=== PATIENT | male | born 1935 | race Caucasian/White ===

== ENCOUNTER 2020-10-24 17:51 | Emergency (ER) | payer MEDICARE ==
[~2020-10-24] VITALS: Ht 180.3 cm; Wt 79.8 kg
[~2020-10-24 17:51] MED LIST: ASPI325EC; FOLI1; METO25ER
[2020-10-24 18:23] LABS: BASOPHILS ABSOLUTE AUTO 0.05 K/mm3 (0.00-0.23); BASOPHILS PERCENT AUTO 0 % (0-2); EOSINOPHILS ABSOLUTE AUTO 0.12 K/mm3 (0.00-0.68); EOSINOPHILS PERCENT AUTO 1 % (0-6); Hematocrit 48.6 % (37.0-53.0); Hemoglobin 16.3 g/dL (13.5-17.5); IMMATURE GRAN ABSOLUTE AUTO 0.04 K/mm3 (0.00-0.10); IMMATURE GRAN PERCENT AUTO 0 % (0-1); LYMPHOCYTES ABSOLUTE AUTO 1.84 K/mm3 (0.84-5.20); LYMPHOCYTES PERCENT AUTO 15 % (21-46); MONOCYTES ABSOLUTE AUTO 0.68 K/mm3 (0.16-1.47); MONOCYTES PERCENT AUTO 6 % (4-13); Mean Corpuscular HGB 32.8 pg (26.0-34.0); Mean Corpuscular HGB Conc 33.5 g/dL (31.5-36.5); Mean Corpuscular Volume 98 fL (80-100); Mean Platelet Volume 9.5 fL (9.1-12.4); NEUTROPHILS ABSOLUTE AUTO 9.43 K/mm3 (1.96-9.15); NEUTROPHILS PERCENT AUTO 78 % (41-73); Platelet Count 249 K/mm3 (150-400); RDW Coefficient Variation 12.8 % (11.7-14.2); Red Blood Cell Count 4.97 M/mm3 (4.30-5.90); White Blood Cell Count 12.16 K/mm3 (4.00-11.30)
[2020-10-24 18:48] LABS: Alanine Aminotransfer (ALT/SGP 29 U/L (12-78); Albumin, Blood 4.1 g/dL (3.4-5.0); Alk Phos 98 U/L (50-136); Anion Gap 6 mmol/L (6-16); Aspartate Aminotrans (AST/SGOT 21 U/L (12-37); Blood Urea Nitrogen 18 mg/dL (8-24); CO2, Blood 26 mmol/L (21-32); Calcium, Blood 9.5 mg/dL (8.5-10.1); Chloride, Blood 108 mmol/L (98-108); Globulin, Blood 4.2 g/dL (2.2-4.0); Glomerular Filtration Rate >60 (60-); Glucose, Blood 102 mg/dL (70-99); Potassium, Blood 4.4 mmol/L (3.5-5.5); Sodium, Blood 140 mmol/L (136-145); Total Protein, Blood 8.3 g/dL (6.4-8.2); Troponin I <0.015 ng/mL (0.000-0.040)
[2020-10-24] MEDS ORDERED: metoprolol succinate PO (21:18)
[2020-10-24] MEDS ORDERED: LISI20 PO (21:19)
[2020-10-25 00:20] LABS: Influenza A, PCR NEGATIVE (NEGATIVE); Influenza B, PCR NEGATIVE (NEGATIVE); Resp Syncytial Virus, PCR NEGATIVE (NEGATIVE); SARS-Cov-2 (COVID-19) PCR, MMC NEGATIVE (NEGATIVE)
--- NOTE | 2020-10-25 00:37 | NUR ---
INTO [facility]IA [facility] FROM ER ROOM. History, Chart, Medications and Allergies reviewed before start of procedure.PT REPORTS NPO STATUS AFTER EATING LUNCH AND GETTING "BEEF STROGANOUGH STUCK". AT 1200 ON 10/24/20. Lungs clear T/O to Auscultation. Patient States Post-Procedure ride home has been arranged WITH S/O
--- NOTE | 2020-10-25 00:55 | NUR ---
10/25/20 0055 Reanna Perez History, Chart, Medications and Allergies reviewed before start of procedure.3-LEAD EKG REVIEWED WITH PHYSICIAN PRIOR TO START OF PROCEDURE.MONITOR INTACT WITH CONTINUOUS PULSE OXIMETRY AND INTERMITTENT BP.O2 VIA N/C INTACT THROUGHOUT SEDATION/PROCEDURE. PATIENT DETERMINED TO BE ASA APPROPRIATE FOR MODERATE SEDATION PRIOR TO START OF PROCEDURE BY DR. BUSH.Bite Block Placed
--- NOTE | 2020-10-25 02:11 | NUR ---
Patient up to Ambulate independently. Gait steady. Discharge instructions reviewed with patient AND S/O PER PT REQUEST. Patient verbalizes understanding. Copy given to patient to take home INCLUDING PRESCRIPTION. Discharged via wheelchair to private car for ride home WITH S/O
[2020-11-29] MEDS ORDERED: SILD25T (13:28)
[2020-11-29] MEDS ORDERED: Flonase 0.05% N16 GM (13:28)
[2020-11-29] MEDS ORDERED: Aspirin EC81 MG PO (13:28)
[2020-11-29] MEDS ORDERED: METO50ER PO (13:29)
[2020-11-29] MEDS ORDERED: LISI20 PO (13:29)
== END 2020-10-25 00:26 | disposition other institution (70) ==
LOC: ER 17:51
PROVIDERS: Emergency Medicine; Physician Assistant
DX: T18.128A Food in esophagus causing other injury, initial encounter (principal); K22.2 Esophageal obstruction; K25.9 Gastric ulcer, unspecified as acute or chronic, without hemorrhage or perforation; K26.9 Duodenal ulcer, unspecified as acute or chronic, without hemorrhage or perforation; I10 Essential (primary) hypertension; I25.10 Atherosclerotic heart disease of native coronary artery without angina pectoris; Z20.822 Contact with and (suspected) exposure to COVID-19; Z79.899 Other long term (current) drug therapy
CPT/HCPCS: 0241U; 36415; 71046; 80053; 84484; 85025; 88305; 88342; 93005; 93010; 96374; 96375; 99285-25; A9270; J1610; J2060; J2250; J2405; J3010; J7120

== ENCOUNTER 2020-12-05 12:29 | Day surgery (SDC) | payer MEDICARE ==
[~2020-12-05] VITALS: Ht 180.3 cm; Wt 81.4 kg
[~2020-12-05 12:29] MED LIST changes: +Aspirin EC81 MG PO; +Flonase 0.05% N16 GM; +LISI20 PO; +METO50ER PO; +SILD25T; +metoprolol succinate PO
== END 2020-12-05 15:06 | disposition home or self-care (01) ==
LOC: ORSCSDS 12:29
PROVIDERS: Internal Medicine Gastroenterology
PROC: 0DB58ZX Excision of Esophagus, Via Natural or Artificial Opening Endoscopic, Diagnostic (ICD-10-PCS; principal; 2020-12-05 13:45)
PROC: 0DB78ZX Excision of Stomach, Pylorus, Via Natural or Artificial Opening Endoscopic, Diagnostic (ICD-10-PCS; principal; 2020-12-05 13:45)
PROC: 0D758ZZ Dilation of Esophagus, Via Natural or Artificial Opening Endoscopic (ICD-10-PCS; principal; 2020-12-05 13:45)
DX: R13.14 Dysphagia, pharyngoesophageal phase (principal); K22.2 Esophageal obstruction; K31.7 Polyp of stomach and duodenum; K44.9 Diaphragmatic hernia without obstruction or gangrene; I10 Essential (primary) hypertension; Z79.899 Other long term (current) drug therapy; Z79.82 Long term (current) use of aspirin; I25.10 Atherosclerotic heart disease of native coronary artery without angina pectoris
CPT/HCPCS: 88305; 88341; 88342; C1726; J2704; J7120

== ENCOUNTER 2024-09-04 17:45 | Emergency (ER) | payer MEDICARE ==
[~2024-09-04] VITALS: Ht 180.3 cm; Wt 79.8 kg
[~2024-09-04 17:45] MED LIST changes: -ATOR40TA PO; -FUROSEMIDE20 MG PO; -GABA300 PO; -ONDA4ODT MM; -WARF1
[2024-09-04] MEDS ORDERED: Phytonadione 5 MG Tab PO ONE (19:10)
[2024-09-04] MEDS ORDERED: Ondansetron HCl 2 MG / ML 2ML Vial IV ONE (19:10)
[2024-09-04 19:12] VITALS: BP 114/84
[2024-09-04] MEDS ORDERED: ATOR40TA PO (19:14)
[2024-09-04] MEDS ORDERED: FUROSEMIDE20 MG PO (19:14)
[2024-09-04] MEDS ORDERED: NS 1,000 ML IV SCH (19:15)
[2024-09-04] MEDS ORDERED: WARF1 (19:15)
[2024-09-04 22:26] LABS: Source, Urine Voided
[2024-09-04 22:28] LABS: Bilirubin, Urine Neg (Neg); Blood, Urine 4+ (Neg); Glucose Qualitative, Urine Neg (Neg); Ketones, Urine 3+ (Neg); Leukocyte Esterase, Urine 1+ (Neg); Nitrite, Urine Neg (Neg); Protein, Urine 2+ (Neg); Specific Gravity, Urine 1.025 (1.003-1.022); Urobilinogen, Urine NORM (Normal)
[2024-09-04 22:37] LABS: Appearance, Urine Hazy (Clear); Color, Urine Yellow (P-Yellow)
[2024-09-04 22:38] LABS: Bacteria Many /hpf; Granular Casts 0-2 /lpf (0); Hyaline Casts 0-2 /lpf (0-2); Red Blood Cells, Urine 0-2 /hpf (0-2); Squamous Epithelial Cells Mod /hpf (Few); White Blood Cells, Urine 0-2 /hpf (0-5)
[2024-09-04 22:39] LABS: Calcium Oxalate Crystals Few /hpf
[2024-09-06] MEDS ORDERED: ONDA4ODT MM (11:26)
[2024-09-06] MEDS ORDERED: GABA300 PO (18:21)
== END 2024-09-04 22:19 | disposition home or self-care (01) ==
LOC: ER 17:45
PROVIDERS: Emergency Medicine
DX: R11.0 Nausea (principal); R19.7 Diarrhea, unspecified; T45.515A Adverse effect of anticoagulants, initial encounter; I48.91 Unspecified atrial fibrillation; Z79.899 Other long term (current) drug therapy; Z79.01 Long term (current) use of anticoagulants; I10 Essential (primary) hypertension; K52.9 Noninfective gastroenteritis and colitis, unspecified
CPT/HCPCS: 36415; 80053; 81001; 82270; 85025; 85610; 87086; 87177; 87209; 93005; 93010; 96374; 99284-25; A9270; J2405; J7030

== ENCOUNTER → 2024-09-04 | Outpatient (CLI) | payer MEDICARE ==
[~2024-09-04] MED LIST changes: +ATOR40TA PO; +FUROSEMIDE20 MG PO; +GABA300 PO; +ONDA4ODT MM; +WARF1
[2024-09-08 12:40] LABS: Stool Occult Blood Guaiac 1 Neg (Neg)
[2024-09-13 12:27] LABS: OVA AND PARASITE,FECAL INTERP Negative (Negative)
== END | disposition home or self-care (01) ==
LOC: LAB 11:58 → LAB SHORT 11:58
PROVIDERS: Nurse Practitioner Family
DX: K52.9 Noninfective gastroenteritis and colitis, unspecified (principal); Z79.01 Long term (current) use of anticoagulants
CPT/HCPCS: 82270; 87177; 87209

== ENCOUNTER 2024-09-10 09:26 | Emergency (ER) | payer MEDICARE ==
[~2024-09-10] VITALS: Ht 170.2 cm; Wt 74.4 kg
[~2024-09-10 09:26] MED LIST changes: +ATOR40TA PO; +FUROSEMIDE20 MG PO; +GABA300 PO; +ONDA4ODT MM; +WARF1
[2024-09-10 09:53] VITALS: BP 127/64
== END 2024-09-10 10:54 | disposition home or self-care (01) ==
LOC: ER 09:26
DX: M48.54XD Collapsed vertebra, not elsewhere classified, thoracic region, subsequent encounter for fracture with routine healing (principal)
CPT/HCPCS: 99281

== ENCOUNTER 2024-12-16 12:03 | Inpatient (IN) | payer MEDICARE ==
[~2024-12-16] VITALS: Ht 180.3 cm; Wt 70.4 kg
[~2024-12-16 12:03] MED LIST changes: -WARF1; +WARF2 PO
[2024-12-16] MEDS ORDERED: Lactated Ringer's 1,000 ML IV SCH (12:20)
[2024-12-16] MEDS ORDERED: Lactated Ringer's 1,000 ML IV ONE (12:30)
[2024-12-16 12:46] LABS: BASOPHILS ABSOLUTE AUTO 0.03 K/mm3 (0.00-0.23); BASOPHILS PERCENT AUTO 0 % (0-2); EOSINOPHILS ABSOLUTE AUTO 0.01 K/mm3 (0.00-0.68); EOSINOPHILS PERCENT AUTO 0 % (0-6); Hematocrit 39.5 % (37.0-53.0); Hemoglobin 13.3 g/dL (13.5-17.5); IMMATURE GRAN ABSOLUTE AUTO 0.04 K/mm3 (0.00-0.10); IMMATURE GRAN PERCENT AUTO 0 % (0-1); LYMPHOCYTES ABSOLUTE AUTO 0.98 K/mm3 (0.84-5.20); LYMPHOCYTES PERCENT AUTO 9 % (21-46); MONOCYTES ABSOLUTE AUTO 1.25 K/mm3 (0.16-1.47); MONOCYTES PERCENT AUTO 11 % (4-13); Mean Corpuscular HGB 34.5 pg (26.0-34.0); Mean Corpuscular HGB Conc 33.7 g/dL (31.5-36.5); Mean Corpuscular Volume 102 fL (80-100); Mean Platelet Volume 9.6 fL (9.1-12.4); NEUTROPHILS ABSOLUTE AUTO 9.01 K/mm3 (1.96-9.15); NEUTROPHILS PERCENT AUTO 80 % (41-73); Platelet Count 259 K/mm3 (150-400); RDW Coefficient Variation 13.1 % (11.7-14.2); RDW Standard Deviation 49.5 fL (35.1-46.3); Red Blood Cell Count 3.86 M/mm3 (4.30-5.90); White Blood Cell Count 11.32 K/mm3 (4.00-11.30)
[2024-12-16 12:54] LABS: Source, Urine Clean Catch
[2024-12-16 13:04] LABS: Appearance, Urine Clear (Clear); Bilirubin, Urine Neg (Neg); Blood, Urine 4+ (Neg); Color, Urine Yellow (P-Yellow); Glucose Qualitative, Urine Neg (Neg); Ketones, Urine Neg (Neg); Leukocyte Esterase, Urine Neg (Neg); Nitrite, Urine Neg (Neg); Protein, Urine 2+ (Neg); Specific Gravity, Urine 1.025 (1.003-1.022); Urobilinogen, Urine NORM (Normal)
[2024-12-16 13:13] LABS: Albumin, Blood 3.1 g/dL (3.4-5.0); Albumin/Globulin Ratio 0.7 (0.8-1.8); Bilirubin, Total 0.7 mg/dL (0.1-1.0); Bun/Creatinine Ratio 18.9 (12.0-20.0); Calcium, Blood 8.9 mg/dL (8.5-10.1); Creatinine, Blood 0.9 mg/dL (0.60-1.20); Globulin, Blood 4.6 g/dL (2.2-4.0); Potassium, Blood 4.7 mmol/L (3.5-5.5); Total Protein, Blood 7.7 g/dL (6.4-8.2)
[2024-12-16 13:20] LABS: Bacteria Rare /hpf; Renal Epithelial Rare /hpf (0-Rare); Squamous Epithelial Cells Rare /hpf (Few); White Blood Cells, Urine 0-2 /hpf (0-5)
[2024-12-16] MEDS ORDERED: CefTRIAXone Sodium 1,000 MG in NS 100 ML IV ONE ×2 (13:45→14:55)
[2024-12-16] MEDS ORDERED: Ondansetron HCl 2 MG / ML 2ML Vial IV PRN (16:00)
[2024-12-16] MEDS ORDERED: OxyCODONE HCL 5 MG TAB PO PRN ×3 (16:00→23:40)
[2024-12-16] MEDS ORDERED: WARF2 PO (16:24)
[2024-12-16 16:32] LABS: International Normalized Ratio 1.74; Prothrombin Time Results 17.9 Sec (9.7-11.5)
[2024-12-16 17:55] VITALS: BP 136/70
[2024-12-16] MEDS ORDERED: Warfarin Sodium 5 MG Tab PO ONE (18:00)
--- NOTE | 2024-12-16 18:25 | NUR ---
ADMISSION AND SHIFT SUMMARY PATIENT ALERT AND INTERACTIVE BUT VERY HARD OF HEARING. PATIENT TRANFERRED FROM GURNEY TO BED. LOWER EXTREMETIES SATURATED FROM WEEPING OF LEGS. PATIENT REPORTING BACK AND HIP PAIN. PATIENT STATES HIP PAIN IS NEW SINCE YESTERDAY. ADMISSION PROCESS STARTED. PATIENT EATING DINNER DURING ADMISSION PROCESS.
[2024-12-16 19:34] VITALS: BP 116/62
[2024-12-16] MEDS ORDERED: Lactobacil 2-S.Thermo-Bifido 1 1 Cap PO SCH (21:00)
[2024-12-16] MEDS ORDERED: Sennosides 8.6 MG Tab PO SCH (21:00)
[2024-12-16] MEDS ORDERED: Metoprolol Succinate 25 MG TABCR PO SCH (21:00)
[2024-12-16] MEDS ORDERED: Docusate Sodium 100 MG Cap PO SCH (21:00)
[2024-12-16] MEDS ORDERED: Acetaminophen 325 MG TABLET PO PRN (22:35)
[2024-12-16] MEDS ORDERED: FentaNYL Citrate 50 MCG/ML 2 ML Injection IV ONE (23:35)
[2024-12-16 23:38] VITALS: BP 114/81
[2024-12-17] MEDS ORDERED: FentaNYL Citrate 50 MCG/ML 2 ML Injection IV PRN (02:05)
[2024-12-17] MEDS ORDERED: Naloxone HCl 0.4MG / ML 1ML Vial IV PRN (02:10)
[2024-12-17] MEDS ORDERED: Ketorolac Tromethamine 30mg Vial IV ONE (03:00)
[2024-12-17 03:56] VITALS: BP 109/67
[2024-12-17] MEDS ORDERED: NS 250 ML IV PRN (04:15)
--- NOTE | 2024-12-17 04:51 | NUR ---
SHIFT SUMMARY PT A&Ox4. PT PAINFUL MOST OF THE NIGHT. PT FIRST C/O PAIN IN HIS BACK BUT ALSO LATER C/O PAIN IN LEFT HEAL, LEFT KNEE, AND ABD. SPOKE WITH DR's TWICE ON THE PHONE AND ONCE IN PERSON. ORDERS GIVEN EACH TIME TO HELP MANAGE PT's PAIN. PT EVENTUALLY FELL ASLEEP AROUND 0330 AND APPEARED TO BE RESTING COMFORTABLY. RESPIRATIONS EVEN AND UNLABORED. NO EVENTS ON TELE. PT NEEDING TO URINATE SMALL, FEQUENT AMOUNTS. MALE PURWICK PLACED. PIC TAKEN OF RED AREA ON COCCYX AND PT FLOATED ON PILLOWS. DR AWARE OF STAGE 1 PRESSURE INJURY. PT ALSO C/O FEELING LIKE LEFT HEAL WAS STICKING TO BED AND CAUSING PAIN. NON ADHERANT PADS AND CURLEX DRESSING PLACED ON FOOT FOR COMFORT. DOPPLER USED TO FIND PEDAL PULSES. REDNESS ON BILATEAL LEGS OUTLINED. VSS. BED ALARM ON. BED IN LOWEST POSITION AND CALL LIGHT IN REACH.
[2024-12-17 05:25] LABS: BASOPHILS ABSOLUTE AUTO 0.03 K/mm3 (0.00-0.23); BASOPHILS PERCENT AUTO 0 % (0-2); EOSINOPHILS ABSOLUTE AUTO 0.02 K/mm3 (0.00-0.68); EOSINOPHILS PERCENT AUTO 0 % (0-6); Hematocrit 33.3 % (37.0-53.0); Hemoglobin 11.1 g/dL (13.5-17.5); IMMATURE GRAN ABSOLUTE AUTO 0.05 K/mm3 (0.00-0.10); IMMATURE GRAN PERCENT AUTO 1 % (0-1); LYMPHOCYTES ABSOLUTE AUTO 0.89 K/mm3 (0.84-5.20); LYMPHOCYTES PERCENT AUTO 9 % (21-46); MONOCYTES ABSOLUTE AUTO 1.22 K/mm3 (0.16-1.47); MONOCYTES PERCENT AUTO 12 % (4-13); Mean Corpuscular HGB 33.6 pg (26.0-34.0); Mean Corpuscular HGB Conc 33.3 g/dL (31.5-36.5); Mean Corpuscular Volume 101 fL (80-100); Mean Platelet Volume 9.7 fL (9.1-12.4); NEUTROPHILS ABSOLUTE AUTO 7.68 K/mm3 (1.96-9.15); NEUTROPHILS PERCENT AUTO 78 % (41-73); Platelet Count 217 K/mm3 (150-400); RDW Standard Deviation 48.4 fL (35.1-46.3); White Blood Cell Count 9.89 K/mm3 (4.00-11.30)
[2024-12-17 05:39] LABS: International Normalized Ratio 2.18
[2024-12-17 05:49] LABS: Albumin, Blood 2.4 g/dL (3.4-5.0); Albumin/Globulin Ratio 0.7 (0.8-1.8); Bilirubin, Total 0.8 mg/dL (0.1-1.0); Bun/Creatinine Ratio 21.7 (12.0-20.0); Calcium, Blood 7.9 mg/dL (8.5-10.1); Creatinine, Blood 0.83 mg/dL (0.60-1.20); Globulin, Blood 3.6 g/dL (2.2-4.0); Potassium, Blood 4.3 mmol/L (3.5-5.5)
[2024-12-17 07:01] VITALS: BP 107/55
[2024-12-17] MEDS ORDERED: Furosemide 20 MG Tab PO SCH (09:00)
[2024-12-17] MEDS ORDERED: CefTRIAXone Sodium 1,000 MG in NS 100 ML IV SCH (09:00)
[2024-12-17] MEDS ORDERED: Atorvastatin 40 MG Tab PO SCH (09:00)
[2024-12-17] MEDS ORDERED: Polyethylene Glycol 3350 17 gm PO SCH (09:00)
[2024-12-17] MEDS ORDERED: Cyclobenzaprine HCl 10 MG Tab PO PRN (10:35)
[2024-12-17 16:08] VITALS: BP 101/55
--- NOTE | 2024-12-17 16:15 | NUR ---
SHIFT SUMMARY: PATIENT PLEASANT AND COOPERATIVE WITH CARE. WOUND CARE TO LLE PER EMAR. HELD TOPORAL SBP BELOW PERAMETER (SBP BELOW 110 AND HR BELOW 60) TELEMETRY DISCONTINUED, AFIB 90'S, BOWEL CARE ADMINISTERED PER EMAR - NO RESULTS THIS SHIFT, PUREWICK IN PLACE FOR INCONTINENCE, MEDICATED FOR PAIN PER EMAR, ATTEMPTED TO GET UP INTO CHAIR FOR LUNCH WITH THERAPY - TOO PAINFUL IN LLE.
--- NOTE | 2024-12-17 16:57 | NUR ---
REVIEWED OUTGOING INSPECTOR'S DOCUMENTATION; AGREEABLE WITH FINDINGS. IF THERE WERE CONTRADICTIONS WITH DOCUMENTATION; WENT OVER WITH OUTGOING INSPECTOR/REASSESS UPDATED DOCUMENTATION OR ADDED MY OWN DOCUMENTATION TO MEET MY FINDINGS.
[2024-12-17] MEDS ORDERED: Warfarin Sodium 2 MG Tab PO SCH (18:00)
[2024-12-17 19:39] VITALS: BP 133/58
[2024-12-18 03:19] VITALS: BP 110/56
--- NOTE | 2024-12-18 05:10 | NUR ---
SHIFT SUMMARY PT A&Ox4 AND PLEASANT. NO C/O PAIN SO FAR THIS SHIFT, HOWEVER BLE ARE PAINFUL TO TOUCH. PT ABLE TO GET UP TO BSC FOR BM WITH 2 PERSON ASSIST. MALE PURWICK IN PLACE AND DRAINING TEA COLORED URINE. PT STATES HE DOES NOT LIKE THE TASTE OF WATER SO AGREEABLE TO DRINK SOME LEMONADE. DRESSING ON LEFT LOWER LEG REMAINS C/D/I. FOAM DRESSING ON COCCYX CHANGED. VSS, CONTINIOUS BIOX IN PLACE. NEW IV PLACED ON LFA. BED ALARM ON DURING THE NIGHT. BED IN LOWEST POSITION AND CALL LIGHT IN REACH.
[2024-12-18 05:45] LABS: Hematocrit 33.3 % (37.0-53.0); Hemoglobin 11.3 g/dL (13.5-17.5); Mean Corpuscular HGB 33.8 pg (26.0-34.0); Mean Corpuscular HGB Conc 33.9 g/dL (31.5-36.5); Mean Corpuscular Volume 100 fL (80-100); Mean Platelet Volume 9.7 fL (9.1-12.4); Platelet Count 224 K/mm3 (150-400); RDW Coefficient Variation 12.8 % (11.7-14.2); RDW Standard Deviation 46.5 fL (35.1-46.3); Red Blood Cell Count 3.34 M/mm3 (4.30-5.90); White Blood Cell Count 9.39 K/mm3 (4.00-11.30)
[2024-12-18 05:55] LABS: International Normalized Ratio 3.14; Prothrombin Time Results 30.9 Sec (9.7-11.5)
[2024-12-18 06:04] LABS: Bun/Creatinine Ratio 34.1 (12.0-20.0); Calcium, Blood 8.1 mg/dL (8.5-10.1); Creatinine, Blood 0.79 mg/dL (0.60-1.20); Magnesium, Blood 2.1 mg/dL (1.6-2.4); Potassium, Blood 4.2 mmol/L (3.5-5.5)
[2024-12-18 07:22] VITALS: BP 140/71
[2024-12-18] MEDS ORDERED: Doxycycline Hyclate 100 MG in Dextrose 5% 250 ML IV SCH (09:00)
[2024-12-18 16:12] VITALS: BP 111/63
--- NOTE | 2024-12-18 16:35 | NUR ---
SHIFT SUMMARY: PATIENT IS MORE MOBILE TODAY. HE HAS BEEN A 1 PERSON/SBA WITH THE FWW. HE HAS BEEN GOING INTO THE RESTROOM; HAD A BOWEL MOVEMENT. EDUCATED ON THE IMPORTANCE ON CONTINUED MOBILITY AND HOW TO AVOID DECONDITIONING WHILE IN THE HOSPITAL. MALE PUREWICK D/C'D; ENCOURAGED TO USE URINE OR GO INTO THE RESTROOM. PATIENT'S PAIN MANAGED WITH OXYCODONE 10 MG AND TYLENOL TODAY REPORTING A 5/10 PAIN PRIOR AND 0/10 PAIN AFTER WALKING ABOUT IN THE HALLWAY. HE IS IN BED/ALERT, CALL LIGHT WITHIN REACH, NO SIGNS OR SYMPTOMS OF DISTRESS, PLAN OF CARE ONGOING. HOME HEALTH VERSUS SNF?
[2024-12-18 20:24] VITALS: BP 105/57
[2024-12-19 02:29] VITALS: BP 142/64
[2024-12-19 05:38] LABS: BASOPHILS ABSOLUTE AUTO 0.03 K/mm3 (0.00-0.23); BASOPHILS PERCENT AUTO 0 % (0-2); EOSINOPHILS ABSOLUTE AUTO 0.25 K/mm3 (0.00-0.68); EOSINOPHILS PERCENT AUTO 3 % (0-6); Hematocrit 37.1 % (37.0-53.0); Hemoglobin 12.2 g/dL (13.5-17.5); IMMATURE GRAN ABSOLUTE AUTO 0.03 K/mm3 (0.00-0.10); IMMATURE GRAN PERCENT AUTO 0 % (0-1); LYMPHOCYTES ABSOLUTE AUTO 1.18 K/mm3 (0.84-5.20); LYMPHOCYTES PERCENT AUTO 16 % (21-46); MONOCYTES ABSOLUTE AUTO 0.69 K/mm3 (0.16-1.47); MONOCYTES PERCENT AUTO 9 % (4-13); Mean Corpuscular HGB 33.2 pg (26.0-34.0); Mean Corpuscular HGB Conc 32.9 g/dL (31.5-36.5); Mean Corpuscular Volume 101 fL (80-100); Mean Platelet Volume 9.4 fL (9.1-12.4); NEUTROPHILS PERCENT AUTO 71 % (41-73); Platelet Count 253 K/mm3 (150-400); RDW Coefficient Variation 12.8 % (11.7-14.2); Red Blood Cell Count 3.67 M/mm3 (4.30-5.90); White Blood Cell Count 7.58 K/mm3 (4.00-11.30)
[2024-12-19 05:53] LABS: International Normalized Ratio 3.08; Prothrombin Time Results 30.3 Sec (9.7-11.5)
--- NOTE | 2024-12-19 05:54 | NUR ---
SHIFT SUMMARY REPORT PATIENT ALERT AND ORIENTED X4, VERY COPERATIVE WITH CARE,RECIEVED HIS IV DOXYCYCLINE,WITH OTHER MED. PER EMAR, METROPROLOL WITHHELD PLEASE REMEBER TO GIVE WHEN DIASTOLIC BP IS ABOVE 115, ONE PERSON ASSIST, NOT IN [place] ,USE BED SIDE MALE URINAL IV LINE ON HIS LEFT LOWER ARM PATENT. SLEPT ALL THROUGH THE NIGHT, CALL LIGHT ANSWERED PROMPTLY AND FRANCIA WITHN PATIENT REACH.
[2024-12-19 06:11] LABS: Albumin, Blood 2.2 g/dL (3.4-5.0); Albumin/Globulin Ratio 0.6 (0.8-1.8); Bilirubin, Total 0.4 mg/dL (0.1-1.0); Bun/Creatinine Ratio 26.4 (12.0-20.0); Calcium, Blood 8.2 mg/dL (8.5-10.1); Creatinine, Blood 0.8 mg/dL (0.60-1.20); Phosphorus, Blood 2.6 mg/dL (2.5-4.9); Potassium, Blood 4.5 mmol/L (3.5-5.5); Total Protein, Blood 6.2 g/dL (6.4-8.2)
[2024-12-19 08:21] VITALS: BP 125/76
--- NOTE | 2024-12-19 12:42 | NUR ---
NOTIFIED DR. CAMERON OF PATIENT'S ELEVATED LIVER ENZYMES
[2024-12-19 15:25] VITALS: BP 125/55
--- NOTE | 2024-12-19 16:53 | NUR ---
SHIFT SUMMARY: NO EVENTS OR CHANGES WITH THE PATIENT THROUGHOUT THE SHIFT. HE REMAINS PLEASANT AND COOPERATIVE WITH CARE. HE IS A 1 PERSON/SBA ASSIST WITH THE FWW. HE IS CONTINENT WITH THE URINAL OR BATHROOM, TAKES HIS PILLS WHOLE ONE AT TIME, CALLS APPROPRIATELY; WILL POLITELY HOLLER OUT IF CANNOT FIND CALL LIGHT. WOUND CARE ON LLE IS GOING WELL; IMPROVEMENT OF WOUND; PATIENT COCCYX WOUND REMAINS; CONTINUING TO APPLY PROTECTIVE DRESSING AND OFF LOADING PER PROTOCOL. PT STATES THAT HIS SORE WAS THERE PRIOR TO ADMISSION AND THAT IT WAS WORSE THAN IT WAS. EDUCATED PATIENT ON PRESSURE WOUND PREVENTION. PATIENT IN BED, ALERT, CALL LIGHT WITHIN REACH, NO SIGNS OR SYMPTOMS OF DISTRESS, PLAN OF CARE ONGOING.
[2024-12-19 20:16] VITALS: BP 117/64
--- NOTE | 2024-12-20 04:24 | NUR ---
SHIFT SUMMARY REPORT PATIENT ALERT AND ORIENTED X4 COPERATIVE WITH CARE RECIEVED HIS IV DOXYCYCLINE AT 1200,PERIPHARIAL IV LINE CHANGE TO RIGHT LOWER ARM, VERBALIZE PAIN OF 3/10. OEDEMA OF THE LOWER LIMB SLIGHTLY REDUCING , SKIN DRY AND RED .CALL LIGHT ANSWERED ,BED AT THE LOWEST AND CALL LIGHT BROUGHT TO PATIENT REACH.
[2024-12-20 05:46] LABS: Hemoglobin 12.5 g/dL (13.5-17.5); Mean Corpuscular HGB 33.7 pg (26.0-34.0); Mean Corpuscular HGB Conc 33.8 g/dL (31.5-36.5); Mean Corpuscular Volume 100 fL (80-100); Mean Platelet Volume 9.2 fL (9.1-12.4); Platelet Count 304 K/mm3 (150-400); RDW Coefficient Variation 12.8 % (11.7-14.2); Red Blood Cell Count 3.71 M/mm3 (4.30-5.90); White Blood Cell Count 7.74 K/mm3 (4.00-11.30)
[2024-12-20 05:49] VITALS: BP 114/58
[2024-12-20 05:55] LABS: International Normalized Ratio 2.44; Prothrombin Time Results 24.4 Sec (9.7-11.5)
[2024-12-20 06:10] LABS: Albumin, Blood 2.3 g/dL (3.4-5.0); Albumin/Globulin Ratio 0.6 (0.8-1.8); Bilirubin, Total 0.4 mg/dL (0.1-1.0); Bun/Creatinine Ratio 23.7 (12.0-20.0); Calcium, Blood 8.5 mg/dL (8.5-10.1); Creatinine, Blood 0.76 mg/dL (0.60-1.20); Magnesium, Blood 2.1 mg/dL (1.6-2.4); Potassium, Blood 4.6 mmol/L (3.5-5.5); Total Protein, Blood 6.3 g/dL (6.4-8.2)
[2024-12-20 07:16] VITALS: BP 130/72
[2024-12-20] MEDS ORDERED: Doxycycline Hyclate 100 MG TAB PO SCH (09:00)
[2024-12-20] MEDS ORDERED: Cephalexin Monohydrate 500 MG Cap PO SCH (09:00)
--- NOTE | 2024-12-20 15:13 | NUR ---
NO CHANGES FOR THE PT. NO C/O PAIN SOB OR CHEST PAIN. NO PRNS GIVEN
[2024-12-20 15:30] VITALS: BP 132/78
[2024-12-20] MEDS ORDERED: Warfarin Sodium 2 MG Tab PO SCH (18:00)
[2024-12-20 20:17] VITALS: BP 152/83
[2024-12-21 03:51] VITALS: BP 138/79
--- NOTE | 2024-12-21 04:00 | NUR ---
SHIFT SUMMARY PATIENT HAD NO ACUTE CHANGES. ALERT ORIENTED AND SBA W/FWW TO BR. WALKED HALLWAY WITH ASSIST. DENIES CHEST PAIN, SOB, AND N.V. VSS/AFEBRILE. PIV INTACT. CALL APPROPRIATELY AND MAKES NEEDS KNOW. CALL LIGHT IN REACH. BED IN LOWEST POSITION AND ALARM ACTIVATED. WILL CONTINUE TO MONITOR UNTIL DAY SHIFT NURSE ASSUMES CARE.
[2024-12-21 05:32] LABS: Hematocrit 37.5 % (37.0-53.0); Hemoglobin 12.7 g/dL (13.5-17.5)
[2024-12-21 05:48] LABS: International Normalized Ratio 2.4; Prothrombin Time Results 24.1 Sec (9.7-11.5)
[2024-12-21 06:06] LABS: Albumin, Blood 2.3 g/dL (3.4-5.0); Albumin/Globulin Ratio 0.6 (0.8-1.8); Bilirubin, Total 0.5 mg/dL (0.1-1.0); Bun/Creatinine Ratio 32.1 (12.0-20.0); Calcium, Blood 8.7 mg/dL (8.5-10.1); Creatinine, Blood 0.69 mg/dL (0.60-1.20); Globulin, Blood 4.1 g/dL (2.2-4.0); Potassium, Blood 4.2 mmol/L (3.5-5.5); Total Protein, Blood 6.4 g/dL (6.4-8.2)
[2024-12-21 07:20] VITALS: BP 116/66
--- NOTE | 2024-12-21 07:46 | NUR ---
ASSUMPTION OF CARE: ASSUMED CARE OF PATIENT. ASLEEP DURING SHIFT CHANGE REPORT. LYING IN BED. BREATHING EVEN AND UNLABORED ON RA. BED IN LOWEST POSITION. CALL LIGHT WITHIN REACH. NO ACUTE NEEDS.
[2024-12-21] MEDS ORDERED: DOXY100 PO (13:08)
[2024-12-21] MEDS ORDERED: CEPH500 PO (13:08)
[2024-12-21 14:59] VITALS: BP 149/72
--- NOTE | 2024-12-21 15:01 | NUR ---
DISCHARGE SUMMARY: A&Ox4. PLEASANT AND COOPERATIVE WITH CARE. CALLS APPROPRIATELY AND IS ABLE TO ADVOCATE NEEDS EFFECTIVELY. AMBULATES 1PA c FWW. CONTINENT OF BOWEL AND BLADDER; LBM TODAY. MEDS WHOLE c FLUIDS. NO TELE. NO C/O PAIN OR DISCOMFORT. PLAN TO DISCHARGE TO [facility] FOR SHORT-TERM PHYSICAL THERAPY. REPORT CALLED TO [facility] AND GIVEN TO NURSE ALFONSO GRIMES.
[2024-12-21] MEDS ORDERED: Warfarin Sodium 2 MG Tab PO SCH (18:00)
== END 2024-12-21 15:38 | DRG 872 ==
LOC: ER 12:03 → MEDS 15:54
PROVIDERS: Hospitalist; Student in an Organized Health Care Education/Training Program; ADMIT Internal Medicine
DX: A41.9 Sepsis, unspecified organism (principal); L03.115 Cellulitis of right lower limb; L03.116 Cellulitis of left lower limb; I48.20 Chronic atrial fibrillation, unspecified; C79.51 Secondary malignant neoplasm of bone; L97.319 Non-pressure chronic ulcer of right ankle with unspecified severity; C61 Malignant neoplasm of prostate; I10 Essential (primary) hypertension; I25.10 Atherosclerotic heart disease of native coronary artery without angina pectoris; E78.5 Hyperlipidemia, unspecified; Z60.2 Problems related to living alone; Z79.899 Other long term (current) drug therapy; Z79.01 Long term (current) use of anticoagulants; Z95.1 Presence of aortocoronary bypass graft
CPT/HCPCS: 36415; 71045; 80048; 80053; 81001; 83605; 83735; 84100; 84484; 85014; 85018; 85025; 85027; 85610; 87040; 93005; 93010; 94762; 96374; 97110-CQ; 97116; 97162; 97530; 97530-CQ; 99285-25; A9270; J0696; J1885; J3010; J7050; J7060; J7120

== ENCOUNTER 2025-03-16 13:51 | Emergency (ER) | payer MEDICARE ==
[~2025-03-16] VITALS: Ht 180.3 cm; Wt 70.8 kg
[~2025-03-16 13:51] MED LIST changes: +CEPH500 PO; +DOXY100 PO
[2025-03-16 14:12] VITALS: BP 124/63
[2025-03-16] MEDS ORDERED: OxyCODONE 5 mg/Acetamin 325 mg TABLET PO ONE (15:55)
[2025-03-16] MEDS ORDERED: Percocet 5-3251 EACH PO (16:09)
== END 2025-03-16 16:25 | disposition home or self-care (01) ==
LOC: ER 13:51
DX: S63.501A Unspecified sprain of right wrist, initial encounter (principal); M15.9 Polyosteoarthritis, unspecified; M25.511 Pain in right shoulder; I10 Essential (primary) hypertension; I25.10 Atherosclerotic heart disease of native coronary artery without angina pectoris; E78.5 Hyperlipidemia, unspecified; I48.91 Unspecified atrial fibrillation; Z95.1 Presence of aortocoronary bypass graft; Z79.01 Long term (current) use of anticoagulants; Z79.899 Other long term (current) drug therapy; W19.XXXA Unspecified fall, initial encounter
CPT/HCPCS: 73030; 73110; 99283-25; A9270